=== PATIENT | female | born 1975 | race Caucasian/White ===

== ENCOUNTER 2022-05-09 20:44 | Emergency (ER) | payer OTHER ==
[~2022-05-09] VITALS: Ht 160 cm; Wt 61.2 kg
[~2022-05-09 20:44] MED LIST: YAZ 28 TABLET1 TAB
[2022-05-10] MEDS ORDERED: NABUMETONE750 MG PO (00:44)
== END 2022-05-10 01:46 | disposition home or self-care (01) ==
LOC: ER 20:44
DX: S09.90XA Unspecified injury of head, initial encounter (principal); S19.9XXA Unspecified injury of neck, initial encounter; V49.9XXA Car occupant (driver) (passenger) injured in unspecified traffic accident, initial encounter; Y93.9 Activity, unspecified; Y92.413 State road as the place of occurrence of the external cause; Y99.9 Unspecified external cause status; Z88.8 Allergy status to other drugs, medicaments and biological substances